=== PATIENT | male | born 1990 ===

== ENCOUNTER 2022-01-16 23:37 | Inpatient (IN) ==
[2022-01-17] MEDS ORDERED: NOREPINEPHRINE 4 MG/4 ML VIAL IV ONE (00:20)
[2022-01-17] MEDS ORDERED: MIDAZOLAM 100 MG in SODIUM CHLORIDE 0.9% 80 ML IV PRN (01:55)
[2022-01-17] MEDS ORDERED: NOREPINEPHRINE 8 MG in SODIUM CHLORIDE 0.9% 242 ML IV PRN (02:02)
[2022-01-17] MEDS ORDERED: MIDAZOLAM 2 MG/2 ML VIAL IV ONE (02:11)
[2022-01-17] MEDS ORDERED: MIDAZOLAM 10 MG/2 ML VIAL ONE (02:11)
[2022-01-17 02:21] LABS: Basophils # 0.1 10*3/uL (0.0-0.2); Basophils % 0.3 % (0.0-0.8); Eosinophils % 0.2 % (0.00-10.9); Hematocrit 40.7 VOL% (42.0-52.0); Hemoglobin 13.4 GM/DL (14.0-18.0); Immature Granulocytes % 3.4 %; Immature Granulocytes Absolute 0.86 #; Lymphocytes # 1.2 10*3/uL (1.4-4.0); Lymphocytes % 4.8 % (21.2-54.2); Mean Corpuscular HGB Conc 32.9 GM/DL (32-36); Mean Corpuscular Volume 88.9 FL (87-102); Mean Platelet Volume 10.8 FL (9.6-12.0); Monocytes # 2.5 10*3/uL (0.11-0.8); Monocytes % 9.7 % (1.7-12.7); NRBC # 0.06 10*3/uL; Neutrophils % 81.6 % (38.7-73.9); Platelet Count 137 T/CUMM (130-400); Red Blood Count 4.58 MC/CUMM (3.8-5.5); Red Cell Distribution Width 13.3 % (9.3-17.3); White Blood Count 25.3 T/CUMM (4-12)
[2022-01-17] MEDS: LACTATED RINGERS 1,000 ML IV SCH ×8 (02:22→23:11)
[2022-01-17 02:30] LABS: INR 1.2; Partial Thromboplastin Time 26.5 SECS (23.7-32.9)
[2022-01-17] MEDS ORDERED: SODIUM CHLORIDE 0.9% 1,000 ML IV SCH (02:30)
[2022-01-17 02:40] LABS: Lymphocytes 7 % (20-55); Platelet Estimate Adequate; Total Cells Counted 100
[2022-01-17] MEDS ORDERED: LACTATED RINGERS 1,000 ML IV ONE ×3 (02:45→16:37)
[2022-01-17] MEDS ORDERED: MAGNESIUM SULF RIDER 4 GM/100 ML PREMIX IV PRN (02:53)
[2022-01-17 02:54] LABS: Alanine Aminotransferase 25 U/L (16-61); Albumin 3.2 G/DL (3.4-5.0); Alkaline Phosphatase 38 U/L (45-117); Aspartate Amino Transferase 86 U/L (0-37); Bilirubin,Total < 0.39 MG/DL (0.20-1.00); Blood Urea Nitrogen 21 MG/DL (7-18); CKMB % 0.39 %; Calcium 7.4 MG/DL (8.5-10.1); Carbon Dioxide 24 MMOL/L (21-32); Chloride 112 MMOL/L (98-107); Glucose 102 MG/DL (74-106); Osmolality,Calculated 288.8 MOS/KG (273-304); Potassium 3.8 MMOL/L (3.5-5.1); Sodium 144 MMOL/L (136-145); Total Protein 6.1 G/DL (6.4-8.2)
[2022-01-17] MEDS ORDERED: ALBUTEROL 2.5 MG/3 ML NEB RESP TX PRN (03:08)
[2022-01-17] MEDS ORDERED: ONDANSETRON 4 MG/2 ML VIAL IV PRN (03:08)
[2022-01-17] MEDS: MAGNESIUM SULF RIDER 2 GM/50 ML PREMIX IV PRN (03:13)
[2022-01-17 03:15] LABS: ABG Base Excess -3.6 MMOL/L (-2.5-2.5); ABG HCO3 21.5 MMOL/L (20-26); ABG Oxygen Saturation 99.1 % (95-100); ABG PCO2 40.9 MM HG (35-48); ABG TCO2 19.3 MMOL/L (23-27)
[2022-01-17 03:35] LABS: Amorphous Crystals,Urine Moderate /HPF (Few); Urine Appearance Cloudy (Clear); Urine Color Yellow (Yellow); Urine Specific Gravity 1.025 (1.001-1.035)
[2022-01-17 03:36] LABS: Bilirubin,Urine Negative (Negative); Blood, Urine Large mg/dL (Negative); Glucose,Urine (UA) Negative (Negative); Ketones,Urine Negative (Negative); Nitrite,Urine Negative (Negative); Protein,Urine 100 mg/dL (Negative); Urine Urobilinogen 0.2 eU/dL (<2.0)
[2022-01-17] MEDS: PANTOPRAZOLE 40 MG VIAL IV SCH (03:48)
[2022-01-17] MEDS: fentaNYL INJ 1,250 MCG in SODIUM CHLORIDE 0.9% 225 ML IV PRN ×2 (04:12→11:51)
[2022-01-17] MEDS ORDERED: LACTULOSE 20 GM/30 ML UDCUP PO ONE (08:30)
[2022-01-17] MEDS ORDERED: traZODone 50 MG TABLET PO PRN (08:40)
[2022-01-17 09:08] LABS: Basophils % 0.2 % (0.0-0.8); Hematocrit 37.1 VOL% (42.0-52.0); Hemoglobin 12.5 GM/DL (14.0-18.0); Immature Granulocytes Absolute 0.11 #; Lymphocytes # 1.1 10*3/uL (1.4-4.0); Lymphocytes % 9.9 % (21.2-54.2); Mean Corpuscular HGB Conc 33.7 GM/DL (32-36); Mean Corpuscular Volume 87.7 FL (87-102); Mean Platelet Volume 10.6 FL (9.6-12.0); Monocytes # 1.1 10*3/uL (0.11-0.8); Monocytes % 10.5 % (1.7-12.7); NRBC # 0.02 10*3/uL; Neutrophils % 78.4 % (38.7-73.9); Red Blood Count 4.23 MC/CUMM (3.8-5.5); Red Cell Distribution Width 13.5 % (9.3-17.3); White Blood Count 10.7 T/CUMM (4-12)
[2022-01-17 09:13] LABS: Platelet Count 60 T/CUMM (130-400)
[2022-01-17 09:26] LABS: Alanine Aminotransferase 38 U/L (16-61); Alkaline Phosphatase 30 U/L (45-117); Aspartate Amino Transferase 174 U/L (0-37); Bilirubin,Total < 0.39 MG/DL (0.20-1.00); Blood Urea Nitrogen 20 MG/DL (7-18); Calcium 7.2 MG/DL (8.5-10.1); Carbon Dioxide 27 MMOL/L (21-32); Chloride 113 MMOL/L (98-107); Glucose 78 MG/DL (74-106); Osmolality,Calculated 282.3 MOS/KG (273-304); Platelet Estimate Decreased; Potassium 4.7 MMOL/L (3.5-5.1); Sodium 141 MMOL/L (136-145); Total Protein 5.5 G/DL (6.4-8.2)
[2022-01-17] MEDS: BENZTROPINE 1 MG TABLET PO SCH ×2 (09:32→20:04)
[2022-01-17] MEDS: VALPROIC ACID INJ 500 MG in SODIUM CHLORIDE 0.9% 100 ML IV SCH ×2 (09:32→18:07)
[2022-01-17] MEDS: HALOPERIDOL 5 MG TABLET PO SCH ×2 (09:58→20:04)
[2022-01-17 16:11] LABS: Bilirubin,Total 0.4 MG/DL (0.20-1.00); Calcium 7.6 MG/DL (8.5-10.1); Potassium 4.4 MMOL/L (3.5-5.1); Total Protein 5.5 G/DL (6.4-8.2)
[2022-01-17] MEDS: DEXMEDETOMIDINE 200 MCG in SODIUM CHLORIDE 0.9% 48 ML IV PRN ×2 (17:17→21:11)
[2022-01-17] MEDS ORDERED: DEXTROSE 50% 25 GM/50 ML SYRINGE IV ONE ×2 (23:16→23:30)
[2022-01-17] MEDS ORDERED: DEXTROSE 10% 250 ML BAG IV PRN (23:17)
[2022-01-18] MEDS: DEXMEDETOMIDINE 200 MCG in SODIUM CHLORIDE 0.9% 48 ML IV PRN (00:01)
[2022-01-18] MEDS: VALPROIC ACID INJ 500 MG in SODIUM CHLORIDE 0.9% 100 ML IV SCH (01:06)
[2022-01-18 02:27] LABS: Basophils % 0.3 % (0.0-0.8); Hematocrit 36.7 VOL% (42.0-52.0); Hemoglobin 12.1 GM/DL (14.0-18.0); Immature Granulocytes % 0.4 %; Immature Granulocytes Absolute 0.04 #; Lymphocytes # 1.7 10*3/uL (1.4-4.0); Lymphocytes % 18.3 % (21.2-54.2); Mean Corpuscular Volume 90.6 FL (87-102); Mean Platelet Volume 10.9 FL (9.6-12.0); Monocytes # 1.1 10*3/uL (0.11-0.8); Monocytes % 11.5 % (1.7-12.7); Neutrophils % 69.5 % (38.7-73.9); Platelet Count 57 T/CUMM (130-400); Red Blood Count 4.05 MC/CUMM (3.8-5.5); Red Cell Distribution Width 13.7 % (9.3-17.3); White Blood Count 9.4 T/CUMM (4-12)
[2022-01-18] MEDS: hydrALAZINE 20 MG/1 ML VIAL IV PRN (02:39)
[2022-01-18] MEDS: PANTOPRAZOLE 40 MG VIAL IV SCH (02:39)
[2022-01-18 02:45] LABS: Albumin 2.7 G/DL (3.4-5.0); Bilirubin,Total 0.4 MG/DL (0.20-1.00); Calcium 7.7 MG/DL (8.5-10.1); Potassium 4.3 MMOL/L (3.5-5.1); Total Protein 5.4 G/DL (6.4-8.2)
[2022-01-18] MEDS: DEXMEDETOMIDINE 400 MCG in SODIUM CHLORIDE 0.9% 96 ML IV PRN ×2 (02:59→10:33)
[2022-01-18] MEDS: LACTATED RINGERS 1,000 ML IV SCH ×6 (03:00→20:58)
[2022-01-18 03:13] LABS: Arterial Base Excess iSTAT 1 MMOL/L (-2.5-2.5); Arterial Bicarbonate iSTAT 27.1 MMOL/L (20-26); Arterial O2 Saturation iSTAT 91 % (95-100); Arterial PCO2 iSTAT 49 MM HG (35-48); Arterial PO2 iSTAT 65 MM HG (80-95); Arterial Total CO2 iSTAT 29 MMO/L (23-27); Arterial pH iSTAT 7.354 (7.35-7.45)
[2022-01-18 03:14] LABS: Platelet Estimate Decreased
[2022-01-18] MEDS: BENZTROPINE 1 MG TABLET PO SCH ×2 (08:52→20:00)
[2022-01-18] MEDS: HALOPERIDOL 5 MG TABLET PO SCH ×2 (08:52→20:00)
[2022-01-18] MEDS: FAMOTIDINE 20 MG/2 ML VIAL IV SCH (08:52)
[2022-01-18 09:54] LABS: Hepatitis B Core IgM Quant < 0.05 Index; Hepatitis B Surface Ag Quant < 0.10 Index; Hepatitis B Surface Ag Result Non-Reactive (NonReactive); Hepatitis C Virus Ab Quant 0.06 Index; Hepatitis C Virus Ab Result Non-Reactive (NonReactive)
[2022-01-18] MEDS: DIVALPROEX ER 500 MG TABLET PO SCH ×3 (10:12→20:00)
[2022-01-18] MEDS: chlorproMAZINE 25 MG TABLET PO SCH ×2 (10:16→20:00)
[2022-01-18] MEDS: CHOLECALCIFEROL 5,000 UNIT TABLET PO SCH (10:18)
[2022-01-18] MEDS: ACETAMINOPHEN 325 MG TABLET PO PRN (18:34)
[2022-01-18] MEDS ORDERED: HALOPERIDOL 5 MG/ML AMP IM PRN (18:50)
[2022-01-18] MEDS: LORazepam 2 MG/1 ML VIAL IV PRN (20:18)
[2022-01-19] MEDS: LORazepam 2 MG/1 ML VIAL IV PRN ×4 (01:50→19:23)
[2022-01-19 04:07] LABS: Basophils % 0.4 % (0.0-0.8); Hematocrit 36.6 VOL% (42.0-52.0); Hemoglobin 12.4 GM/DL (14.0-18.0); Immature Granulocytes % 0.7 %; Immature Granulocytes Absolute 0.06 #; Lymphocytes # 1.2 10*3/uL (1.4-4.0); Lymphocytes % 14.2 % (21.2-54.2); Mean Corpuscular HGB Conc 33.9 GM/DL (32-36); Mean Platelet Volume 11.4 FL (9.6-12.0); Monocytes % 12.3 % (1.7-12.7); Neutrophils % 72.4 % (38.7-73.9); Platelet Count 51 T/CUMM (130-400); Red Blood Count 4.16 MC/CUMM (3.8-5.5); Red Cell Distribution Width 12.9 % (9.3-17.3); White Blood Count 8.5 T/CUMM (4-12)
[2022-01-19 04:24] LABS: Platelet Estimate Decreased
[2022-01-19 04:35] LABS: Albumin 2.8 G/DL (3.4-5.0); Calcium 8.7 MG/DL (8.5-10.1); Osmolality,Calculated 281.1 MOS/KG (273-304); Potassium 4.1 MMOL/L (3.5-5.1); Total Protein 5.6 G/DL (6.4-8.2)
[2022-01-19] MEDS: MAGNESIUM SULF RIDER 2 GM/50 ML PREMIX IV PRN (04:55)
[2022-01-19] MEDS: FAMOTIDINE 20 MG/2 ML VIAL IV SCH (06:30)
[2022-01-19] MEDS ORDERED: ZIPRASIDONE 20 MG/1 ML VIAL IM PRN (07:54)
[2022-01-19] MEDS: LACTATED RINGERS 1,000 ML IV SCH ×4 (08:00→20:35)
[2022-01-19] MEDS ORDERED: DEXMEDETOMIDINE 200 MCG in SODIUM CHLORIDE 0.9% 48 ML IV PRN (08:26)
[2022-01-19] MEDS ORDERED: cefTRIAXone 1,000 MG in SODIUM CHLORIDE 0.9% 100 ML IV SCH (10:30)
[2022-01-19] MEDS: BENZTROPINE 1 MG TABLET PO SCH ×2 (10:33→21:15)
[2022-01-19] MEDS: chlorproMAZINE 25 MG TABLET PO SCH ×2 (10:33→21:15)
[2022-01-19] MEDS: LACTULOSE 20 GM/30 ML UDCUP PO SCH (10:33)
[2022-01-19] MEDS: DIVALPROEX ER 500 MG TABLET PO SCH ×3 (10:34→21:15)
[2022-01-19] MEDS: HALOPERIDOL 5 MG TABLET PO SCH (10:34)
[2022-01-19] MEDS: CHOLECALCIFEROL 5,000 UNIT TABLET PO SCH (10:37)
[2022-01-19] MEDS: ACETAMINOPHEN 325 MG TABLET PO PRN (12:07)
[2022-01-19 13:05] LABS: Arterial Base Excess iSTAT 3 MMOL/L (-2.5-2.5); Arterial Bicarbonate iSTAT 26.8 MMOL/L (20-26); Arterial O2 Saturation iSTAT 97 % (95-100); Arterial PCO2 iSTAT 38 MM HG (35-48); Arterial PO2 iSTAT 90 MM HG (80-95); Arterial Total CO2 iSTAT 28 MMO/L (23-27); Arterial pH iSTAT 7.458 (7.35-7.45)
[2022-01-19] MEDS: AZITHROMYCIN INJ 500 MG in SODIUM CHLORIDE 0.9% 250 ML IV SCH (13:16)
[2022-01-19] MEDS: cefTRIAXone 2,000 MG in SODIUM CHLORIDE 0.9% 100 ML IV SCH (13:16)
[2022-01-19 14:37] LABS: Mucus,Urine Occasional /LPF (Occasional); RBC,Urine 7 /HPF (0-4); Urine Appearance Clear (Clear); Urine Color Yellow (Yellow); Urine pH 7.5 (4.5-8.0)
[2022-01-19 14:38] LABS: Bilirubin,Urine Negative (Negative); Blood, Urine Large mg/dL (Negative); Glucose,Urine (UA) Negative (Negative); Ketones,Urine Negative (Negative); Nitrite,Urine Negative (Negative); Protein,Urine Negative (Negative)
[2022-01-19] MEDS: SODIUM BICARB INJ 100 MEQ in STERILE WATER INJ 1,000 ML IV SCH (20:35)
[2022-01-19] MEDS: traZODone 50 MG TABLET PO PRN (21:15)
[2022-01-20] MEDS: LORazepam 2 MG/1 ML VIAL IV PRN ×2 (01:47→09:08)
[2022-01-20 04:58] LABS: Basophils % 0.2 % (0.0-0.8); Hematocrit 34.2 VOL% (42.0-52.0); Hemoglobin 11.6 GM/DL (14.0-18.0); Immature Granulocytes % 0.9 %; Immature Granulocytes Absolute 0.09 #; Lymphocytes # 0.9 10*3/uL (1.4-4.0); Lymphocytes % 8.5 % (21.2-54.2); Mean Corpuscular HGB Conc 33.9 GM/DL (32-36); Mean Corpuscular Volume 86.8 FL (87-102); Mean Platelet Volume 10.7 FL (9.6-12.0); Monocytes # 1.4 10*3/uL (0.11-0.8); Monocytes % 13.7 % (1.7-12.7); Neutrophils % 76.7 % (38.7-73.9); Platelet Count 66 T/CUMM (130-400); Red Blood Count 3.94 MC/CUMM (3.8-5.5); Red Cell Distribution Width 12.8 % (9.3-17.3); White Blood Count 10.3 T/CUMM (4-12)
[2022-01-20 05:21] LABS: Hypochromia Slight; Microcytosis Slight; Platelet Estimate Decreased
[2022-01-20 06:47] LABS: Albumin 2.6 G/DL (3.4-5.0); Bilirubin,Total 1.2 MG/DL (0.20-1.00); Calcium 8.6 MG/DL (8.5-10.1); Osmolality,Calculated 274.5 MOS/KG (273-304); Potassium 3.5 MMOL/L (3.5-5.1); Total Protein 6.1 G/DL (6.4-8.2)
[2022-01-20] MEDS: LACTATED RINGERS 1,000 ML IV SCH ×2 (07:09→18:30)
[2022-01-20] MEDS: SODIUM BICARB INJ 100 MEQ in STERILE WATER INJ 1,000 ML IV SCH ×2 (07:09→18:15)
[2022-01-20] MEDS: LACTULOSE 20 GM/30 ML UDCUP PO SCH (08:59)
[2022-01-20] MEDS: chlorproMAZINE 25 MG TABLET PO SCH ×3 (09:00→21:49)
[2022-01-20] MEDS: FAMOTIDINE 20 MG/2 ML VIAL IV SCH (09:00)
[2022-01-20] MEDS: BENZTROPINE 1 MG TABLET PO SCH ×3 (09:00→21:49)
[2022-01-20] MEDS: CHOLECALCIFEROL 5,000 UNIT TABLET PO SCH (09:00)
[2022-01-20] MEDS: DIVALPROEX ER 500 MG TABLET PO SCH ×4 (09:01→21:49)
[2022-01-20] MEDS: HALOPERIDOL 5 MG TABLET PO SCH ×3 (12:15→21:49)
[2022-01-20] MEDS: cefTRIAXone 2,000 MG in SODIUM CHLORIDE 0.9% 100 ML IV SCH (13:27)
[2022-01-20] MEDS: hydrALAZINE 20 MG/1 ML VIAL IV PRN (13:28)
[2022-01-20] MEDS: AZITHROMYCIN INJ 500 MG in SODIUM CHLORIDE 0.9% 250 ML IV SCH (13:28)
[2022-01-20 14:00] LABS: CKMB % 0.02 %
[2022-01-20] MEDS ORDERED: cloNIDine 0.2 MG/24 HR PATCH TRANSDERM SCH (18:00)
[2022-01-20] MEDS ORDERED: METOPROLOL TARTRATE 5 MG/5 ML VIAL IV ONE ×2 (18:02→18:30)
[2022-01-21] MEDS: hydrALAZINE 20 MG/1 ML VIAL IV PRN (03:31)
[2022-01-21 03:54] LABS: Basophils % 0.2 % (0.0-0.8); Hematocrit 33.8 VOL% (42.0-52.0); Hemoglobin 11.6 GM/DL (14.0-18.0); Immature Granulocytes % 0.7 %; Immature Granulocytes Absolute 0.07 #; Mean Corpuscular HGB Conc 34.3 GM/DL (32-36); Mean Corpuscular Volume 86.7 FL (87-102); Mean Platelet Volume 10.5 FL (9.6-12.0); Monocytes # 1.6 10*3/uL (0.11-0.8); Monocytes % 16.2 % (1.7-12.7); Neutrophils % 72.9 % (38.7-73.9); Platelet Count 129 T/CUMM (130-400); Red Cell Distribution Width 12.9 % (9.3-17.3); White Blood Count 9.8 T/CUMM (4-12)
[2022-01-21 04:13] LABS: Eosinophils 1 % (0-10); Lymphocytes 8 % (20-55); Total Cells Counted 100
[2022-01-21 04:18] LABS: Albumin 2.3 G/DL (3.4-5.0); Bilirubin,Total 0.8 MG/DL (0.20-1.00); Calcium 8.4 MG/DL (8.5-10.1); Osmolality,Calculated 276.4 MOS/KG (273-304); Potassium 3.5 MMOL/L (3.5-5.1); Total Protein 6.3 G/DL (6.4-8.2)
[2022-01-21] MEDS: SODIUM BICARB INJ 100 MEQ in STERILE WATER INJ 1,000 ML IV SCH (05:07)
[2022-01-21 08:18] LABS: RBC,Urine <1 /HPF (0-4); Squamous Epithelial Cell,Urine Occasional /HPF (0-10)
[2022-01-21] MEDS: FAMOTIDINE 20 MG/2 ML VIAL IV SCH (08:18)
[2022-01-21] MEDS: chlorproMAZINE 25 MG TABLET PO SCH ×2 (08:18→20:00)
[2022-01-21 08:19] LABS: Glucose,Urine (UA) Negative (Negative); Ketones,Urine 15 mg/dL (Negative); Protein,Urine 30 mg/dL (Negative); Urine Appearance Clear (Clear); Urine Color Yellow (Yellow); Urine Specific Gravity 1.015 (1.001-1.035); Urine pH 8.5 (4.5-8.0)
[2022-01-21] MEDS: ACETAMINOPHEN 325 MG TABLET PO PRN ×2 (08:19→19:52)
[2022-01-21] MEDS: CHOLECALCIFEROL 5,000 UNIT TABLET PO SCH (08:19)
[2022-01-21] MEDS: HALOPERIDOL 5 MG TABLET PO SCH ×2 (08:19→20:00)
[2022-01-21] MEDS: BENZTROPINE 1 MG TABLET PO SCH ×2 (08:19→20:00)
[2022-01-21] MEDS: DIVALPROEX ER 500 MG TABLET PO SCH ×3 (08:19→20:00)
[2022-01-21 08:20] LABS: Bilirubin,Urine Negative (Negative); Blood, Urine Moderate mg/dL (Negative); Nitrite,Urine Negative (Negative)
[2022-01-21] MEDS: LACTULOSE 20 GM/30 ML UDCUP PO SCH ×2 (08:20→11:00)
[2022-01-21] MEDS: LORazepam 2 MG/1 ML VIAL IV PRN ×3 (08:35→20:10)
[2022-01-21] MEDS: cefTRIAXone 2,000 MG in SODIUM CHLORIDE 0.9% 100 ML IV SCH (14:11)
[2022-01-21 19:31] LABS: HIT Interpretation Negative (Negative)
[2022-01-21] MEDS: traZODone 50 MG TABLET PO PRN (19:52)
[2022-01-22] MEDS: hydrALAZINE 20 MG/1 ML VIAL IV PRN (04:16)
[2022-01-22 04:25] LABS: Basophils % 0.3 % (0.0-0.8); Hematocrit 34.5 VOL% (42.0-52.0); Hemoglobin 11.6 GM/DL (14.0-18.0); Immature Granulocytes % 0.7 %; Immature Granulocytes Absolute 0.07 #; Mean Corpuscular HGB Conc 33.6 GM/DL (32-36); Mean Corpuscular Volume 86.9 FL (87-102); Mean Platelet Volume 10.3 FL (9.6-12.0); Monocytes # 1.8 10*3/uL (0.11-0.8); Monocytes % 16.9 % (1.7-12.7); Neutrophils % 72.1 % (38.7-73.9); Platelet Count 185 T/CUMM (130-400); Red Blood Count 3.97 MC/CUMM (3.8-5.5); Red Cell Distribution Width 12.9 % (9.3-17.3); White Blood Count 10.4 T/CUMM (4-12)
[2022-01-22] MEDS ORDERED: LORazepam 2 MG/1 ML VIAL IM ONE (04:40)
[2022-01-22] MEDS ORDERED: HALOPERIDOL 5 MG/ML AMP IM ONE (04:40)
[2022-01-22] MEDS ORDERED: diphenhydrAMINE 50 MG/1 ML VIAL IM ONE (04:40)
[2022-01-22 04:42] LABS: Albumin 2.3 G/DL (3.4-5.0); Bilirubin,Total 0.7 MG/DL (0.20-1.00); Calcium 8.7 MG/DL (8.5-10.1); Osmolality,Calculated 279.3 MOS/KG (273-304); Potassium 3.9 MMOL/L (3.5-5.1); Total Protein 6.6 G/DL (6.4-8.2)
[2022-01-22 04:44] LABS: Hypochromia Slight; Lymphocytes 11 % (20-55); Microcytosis Slight; Platelet Estimate Adequate; Total Cells Counted 100
[2022-01-22] MEDS: OLANZapine 5 MG TABLET PO SCH (08:35)
[2022-01-22] MEDS: FAMOTIDINE 20 MG/2 ML VIAL IV SCH (08:36)
[2022-01-22] MEDS: chlorproMAZINE 25 MG TABLET PO SCH ×2 (08:36→21:13)
[2022-01-22] MEDS: DIVALPROEX ER 500 MG TABLET PO SCH ×3 (08:36→21:13)
[2022-01-22] MEDS: HALOPERIDOL 5 MG TABLET PO SCH ×2 (08:37→21:13)
[2022-01-22] MEDS: CHOLECALCIFEROL 5,000 UNIT TABLET PO SCH (08:37)
[2022-01-22] MEDS: BENZTROPINE 1 MG TABLET PO SCH ×2 (08:37→21:13)
[2022-01-22] MEDS: LACTULOSE 20 GM/30 ML UDCUP PO SCH (10:38)
[2022-01-22] MEDS: DIAZEPAM 5 MG TABLET PO SCH ×3 (10:43→21:13)
[2022-01-23 06:57] LABS: Basophils % 0.4 % (0.0-0.8); Eosinophils % 0.1 % (0.00-10.9); Hematocrit 33.9 VOL% (42.0-52.0); Hemoglobin 11.4 GM/DL (14.0-18.0); Immature Granulocytes % 1.1 %; Immature Granulocytes Absolute 0.11 #; Lymphocytes # 1.5 10*3/uL (1.4-4.0); Lymphocytes % 15.2 % (21.2-54.2); Mean Corpuscular HGB Conc 33.6 GM/DL (32-36); Mean Corpuscular Volume 87.6 FL (87-102); Mean Platelet Volume 9.8 FL (9.6-12.0); Monocytes # 1.8 10*3/uL (0.11-0.8); Monocytes % 18.4 % (1.7-12.7); Neutrophils % 64.8 % (38.7-73.9); Platelet Count 312 T/CUMM (130-400); Red Blood Count 3.87 MC/CUMM (3.8-5.5); Red Cell Distribution Width 13.2 % (9.3-17.3); White Blood Count 9.7 T/CUMM (4-12)
[2022-01-23 07:11] LABS: Band Neutrophils 1 % (0-10); Lymphocytes 14 % (20-55); Platelet Estimate Adequate; Total Cells Counted 100
[2022-01-23 07:12] LABS: Hypochromia Slight; Microcytosis Slight
[2022-01-23 07:22] LABS: Albumin 2.4 G/DL (3.4-5.0); Bilirubin,Total 0.7 MG/DL (0.20-1.00); Calcium 8.8 MG/DL (8.5-10.1); Osmolality,Calculated 277.4 MOS/KG (273-304); Phosphorous 3.3 MG/DL (2.5-4.9); Potassium 3.8 MMOL/L (3.5-5.1); Total Protein 6.8 G/DL (6.4-8.2)
[2022-01-23] MEDS: FAMOTIDINE 20 MG/2 ML VIAL IV SCH (08:28)
[2022-01-23] MEDS: OLANZapine 5 MG TABLET PO SCH (08:29)
[2022-01-23] MEDS: DIAZEPAM 5 MG TABLET PO SCH (08:29)
[2022-01-23] MEDS: HALOPERIDOL 5 MG TABLET PO SCH (08:30)
[2022-01-23] MEDS: chlorproMAZINE 25 MG TABLET PO SCH (08:30)
[2022-01-23] MEDS: DIVALPROEX ER 500 MG TABLET PO SCH (08:30)
[2022-01-23] MEDS: CHOLECALCIFEROL 5,000 UNIT TABLET PO SCH (08:30)
[2022-01-23] MEDS: BENZTROPINE 1 MG TABLET PO SCH (08:30)
[2022-01-23 10:17] VITALS: BP 165/86
== END 2022-01-23 12:13 | DRG 815 ==
LOC: N.ICU 01-17 00:22 → SUATTDRO 01-17 02:09
PROVIDERS: ADMIT Internal Medicine; ATTEND Internal Medicine